=== PATIENT | female | born 1995 | race Caucasian/White ===

== ENCOUNTER 2017-11-06 00:05 | Emergency (ER) | payer OTHER ==
[~2017-11-06] VITALS: Ht 162.6 cm; Wt 98.3 kg
[2017-11-06] MEDS ORDERED: TRAMADOL HCL50 MG PO (02:41)
[2017-11-06] MEDS ORDERED: MOTRIN800 MG PO (02:41)
[2017-11-06 02:54] VITALS: BP 135/90
== END 2017-11-06 02:54 | disposition home or self-care (01) ==
LOC: EME 00:05
DX: K08.89 Other specified disorders of teeth and supporting structures (principal); H92.02 Otalgia, left ear; K03.81 Cracked tooth
CPT/HCPCS: 99281; 99284